=== PATIENT | female | born 1955 | race Hispanic/Latino ===

== ENCOUNTER 2017-08-19 05:40 | Day surgery (SDC) | payer OTHER ==
[2017-08-19] MEDS ORDERED: SUBLIMAZE IV NR (06:00)
[2017-08-19] MEDS ORDERED: VERSED IV NR (06:00)
[2017-08-19] MEDS ORDERED: NACL 0.9% 1000 ML 1,000 ML IV SCH (06:00)
[2017-08-19] MEDS ORDERED: PEPCID PO NR (06:00)
[2017-08-19] MEDS ORDERED: NACL BACTERIOSTATIC INFILTRATI ONE (06:38)
[2017-08-19] MEDS ORDERED: ADRENALIN ONE (07:06)
[2017-08-19] MEDS ORDERED: XYLOCAINE 1% 20 mL ONE (07:11)
[2017-08-19] MEDS ORDERED: MARCAINE-EPI/PF 0.5%-1:200,000 INFILTRATI ONE (07:11)
[2017-08-19] MEDS ORDERED: ZEMURON IV ONE (07:23)
[2017-08-19] MEDS ORDERED: SUBLIMAZE ONE (07:23)
[2017-08-19] MEDS ORDERED: QUELICIN ONE (07:23)
[2017-08-19] MEDS ORDERED: XYLOCAINE MPF 2% ONE (07:23)
[2017-08-19] MEDS ORDERED: DIPRIVAN 10 MG/ML IV ONE (07:24)
[2017-08-19 07:33] LABS: Blood Urea Nitrogen 9 mg/dL (7-17); Calcium 8.8 mg/dL (8.4-10.2); Carbon Dioxide 26 mmol/L (22-30); Glucose 82 mg/dL (65-100)
[2017-08-19 07:34] LABS: Anion Gap 16 mmol/L; Chloride 103.2 mmol/L (98-107); Potassium 3.5 mmol/L (3.6-5.0); Sodium 142 mmol/L (137-145)
[2017-08-19] MEDS ORDERED: DILAUDID IV PRN (07:54)
--- NOTE | 2017-08-19 07:54 | Anesthesia Day of Surgery ---
Anesthesia Day of Surgery - Day of Surgery Patient Examined: Yes Patient H&P Reviewed: Yes Patient is NPO: Yes Beta Blockers: No (NOT TAKING ONE) Cardiac Clearance: Yes
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
[2017-08-19] MEDS ORDERED: ePHEDrine SULFATE ONE (07:59)
[2017-08-19] MEDS ORDERED: ANCEF/STERILE WATER 2 GM/20 ML IV NR (08:00)
[2017-08-19] MEDS ORDERED: ADRENALIN IV ONE (08:03)
[2017-08-19] MEDS ORDERED: ZOFRAN IV PRN (09:00)
[2017-08-19] MEDS ORDERED: DECADRON ONE (09:10)
[2017-08-19] MEDS ORDERED: ZOFRAN ONE (09:11)
--- NOTE | 2017-08-19 09:19 | Short Stay Summary ---
Short Stay Documentation Date of service: 08/19/17 - History H&P: obtained from office - Allergies and Medications Current Medications: Allergies oxycodone Allergy (Verified 08/14/17 09:32) Itching Home Medications Medication Instructions Recorded Confirmed Last Taken Type ARIPiprazole [Abilify TAB] 2 mg PO DAILY 08/14/17 08/14/17 Unknown History Aspirin [Adult Low Dose Aspirin EC] 81 mg PO DAILY 08/14/17 08/14/17 Unknown History Bupropion HCl [buPROPion] 300 mg PO DAILY 08/14/17 08/14/17 Unknown History Cholecalciferol Vit D3 [Vitamin D3] 1,000 unit PO QDAY 08/14/17 08/14/17 Unknown History Cyanocobalamin (Vitamin B-12) 2,500 mcg PO DAILY 08/14/17 08/14/17 Unknown History [Vitamin B12] Losartan [Cozaar] 25 mg PO QDAY 08/14/17 08/14/17 Unknown History Omeprazole 40 mg PO DAILY 08/14/17 08/14/17 Unknown History Active Medications Cefazolin Sodium (Ancef/Sterile Water 2 Gm/20 Ml) 2 gm IV PREOP NR Stop: 08/19/17 23:59 Famotidine (Pepcid) 20 mg PO PREOP NR Stop: 08/19/17 23:59 Last Admin: 08/19/17 06:41 Dose: 20 mg Fentanyl (Sublimaze) 100 mcg IV ONCE NR Stop: 08/19/17 23:59 Last Admin: 08/19/17 07:15 Dose: 50 mcg Hydromorphone HCl (Dilaudid) 0.25 mg IV Q10MIN PRN PRN Reason: Pain, Moderate (4-6) Stop: 08/19/17 15:00 Sodium Chloride (Nacl 0.9% 1000 Ml) 1,000 mls @ 75 mls/hr IV DIRECT SALMA Last Admin: 08/19/17 06:50 Dose: 75 mls/hr Midazolam HCl (Versed) 2 mg IV PREOP NR Stop: 08/19/17 23:59 Last Admin: 08/19/17 07:15 Dose: 2 mg - Brief post op/procedure progress note Date of procedure: 08/19/17 Pre-op diagnosis: persistent left shoulder pain AC joint arthritis rotator cuff tear Post-op diagnosis: same Procedure: left shoulder arthroscopy subacromial decompression, distal clavicle excision, rotator cuff repair Anesthesia: GETA Findings: advanced acromioclavicular joint arthritic changes with inferior spurs causing significant impingement upon the rotator cuff, full thickness rotator cuff tear Surgeon: LANI RIVERS Hoop Cutter: PIEDAD LOMBARDO III Estimated blood loss: minimal Pathology: none Condition: stable - Hospital course Hospital course: no perioperative complications - Disposition Condition at discharge: Good Disposition: DC-01 TO HOME OR SELFCARE Short Stay Discharge Plan Follow up with: MALLORY SHAH MD [Primary Care Provider] - 7 Days
[2017-08-19 10:28] VITALS: BP 117/66
--- NOTE | 2017-08-19 10:37 | Post Anesthesia Evaluation ---
- Post Anesthesia Evaluation Patient Participated: Yes Airway Patent: Yes Stable Respiratory Function: Yes Nausea/Vomiting: No Temp > 96.8F: Yes Pain Manageable: Yes Adequeate Hydration: Yes Anesthesia Complications: No Block Receding Appropriately: Yes Patient on Ventilator: No
--- NOTE | 2017-08-20 13:41 | Operative Report ---
PREOPERATIVE DIAGNOSES: Persistent left shoulder pain, acromioclavicular joint arthritis, rotator cuff tear. POSTOPERATIVE DIAGNOSES: Persistent left shoulder pain, advanced acromioclavicular joint arthritic changes causing severe impingement upon the rotator cuff degenerative wear of the anterior and superior labrum, full thickness rotator cuff tear involving the supraspinatus tendon without retraction. OPERATIVE PROCEDURE: Left shoulder arthroscopy, subacromial decompression, distal clavicle excision, debridement of degenerative wear of the anterior and superior labrum, arthroscopic repair of a full thickness rotator cuff tear involving the supraspinatus tendon. SURGEON: Kodak Puri M.D. LEAD RIDER: Brandin Hernandez III, M.D. PREOPERATIVE ANTIBIOTICS: Ancef 2 grams IV within 1 hour of skin incision. ANESTHESIA: General plus interscalene block to the operative left upper extremity. DVT PROPHYLAXIS: Open toe thigh compression stockings and SCD pumps to bilateral lower extremities. OPERATIVE INSTRUMENTATION: Two metallic Opus rotator cuff anchors corresponding #2 Cobraided sutures. OPERATIVE COMPLICATIONS: None. OPERATIVE HISTORY AND PHYSICAL: This is a 62-year-old female who has had persistent progressive worsening left shoulder pain x 7 months' time. The pain markedly limits her day-to-day activities and has failed to improve despite extensive nonoperative treatment. The pain limits her day to day activity. MRI scan was performed and was positive for acromioclavicular joint arthritis, partial biceps tear, partial rotator cuff tear. The patient's MRI findings and diagnosis were discussed at length. After making sure the patient understood the diagnosis and all questions were answered, we then discussed treatment alternatives of surgical and nonsurgical including risks and benefits of both. After a long lengthy discussion, the patient opted to proceed with operative intervention. This will entail a left shoulder arthroscopy, subacromial decompression, distal clavicle excision, arthroscopic rotator cuff repair and surgery as indicated. The risks which were discussed to include, but not exclusive of infection, blood loss, nerve damage, loss of range of motion, persistent pain. Again, the patient understood, all her questions were answered, she wished to proceed with operative intervention. OPERATIVE PROCEDURE: The patient was seen in the preoperative holding area at which point informed consent was reviewed. Appropriate left upper extremity was identified and then marked. Anesthesia was then performed with interscalene block of the left upper extremity. After confirmation of adequate analgesia of the left upper extremity, the patient was then brought back to the operating room and placed supine on the standard operating room table. At which point, general anesthesia was administered and endotracheal tube was inserted. After confirmation of adequate general anesthesia, appropriate placement of endotracheal tube, we then made sure that all bony prominences were well padded. There were no wrinkles in the compression stockings on bilateral lower extremities and SCD pumps were applied to bilateral lower extremities. The patient was then sat in a beach chair position using the beach chair positioner, which was already in place. The head was secured in a nice neutral position. The well right arm was secured in neutral position at the patient's side with the aid of well arm calles. The lower extremities were checked making sure there were no wrinkles from the compression stockings and SCD pumps were applied to bilateral lower extremities. A pillow was placed in the posterior aspect of bilateral thighs, placed in slight flexion of the hips and knees making sure the popliteal fossa was free and clear. The head was secured in nice neutral position. The left arm was then examined under anesthesia. The patient was seen to have full range of motion. There was no evidence of instability. On examination under anesthesia, the left upper extremity was then prepped and draped in the usual sterile fashion. After prepping and draping, a time-out was called and appropriate left upper extremity was identified which again had been marked in the preoperative holding room area. We began our procedure by first making a standard posterior portal with #15 blade. Once the portal was established, the cannula with the blunt trocar was inserted into the intra-articular aspect of the glenohumeral joint. This went without difficulty or damage to articular cartilage. Once in place, the arthroscopic camera was immediately placed in the anterior aspect of the shoulder, established an anterior portal, by first inserting an 18 gauge spinal needle under direct arthroscopic visualization. Once confirmed to be in appropriate position, a 15 blade was then used to establish an anterior portal. Once the portal was established, a blunt trocar was inserted to widen the portal site and followed by an arthroscopic probe. We began a diagnostic arthroscopy in the anterior aspect of shoulder joint, with the patient had a normal subscapularis tendon. Inspection of the anterior superior labrum showed some mild degenerative wear which was gently debrided using 4.0 meniscal shaver. There was normal articular cartilage of the glenohumeral joint. There was a normal bare area without Hill-Sachs lesion. Inspection of the axillary recess showed to be no loose bodies present. Inspection of the bicep tendon showed to be some mild fraying at the origin, although otherwise intact. Next, the shoulder was in its normal relation. Inspection of rotator cuff showed to be full thickness tearing of the supraspinatus tendon without retraction. The arthroscopic pump was turned off making sure there was good hemostasis. Once this was performed, extraneous fluid was suctioned from the glenohumeral joint using arthroscopic cannula. Following this, all arthroscopic instrumentation was removed and then placed in subacromial space. Once in the subacromial space, we saw there was severe extensive subacromial bursitis. A third incision was made in the lateral aspect of the shoulder in line with the distal clavicle away from axillary nerve. We then debrided the extensive subacromial bursitis using 4.0 meniscal shaver. Hemostasis was achieved with the Arthrocare ablation wand. Following this, the arm was placed through range of motion. We saw there was severe impingement of the rotator cuff on undersurface of the acromion and distal clavicle. The soft tissue was removed from the undersurface of acromion using the Arthrocare ablation wand and then using a 4.0 hooded barrel bur. We carried out a subacromial decompression in standard fashion from inferior and superior, posterior and anterior making sure not to leave any residual anterior hook. Then, turned our attention to distal clavicle, which was also seen to be arthritic, performed a distal clavicle excision using the 4.0 hooded barrel bur to depth of approximately 6-8 mm. Once complete, we turned our attention to the rotator cuff tear. The atrophic edge, which was debrided using a series of meniscal basket punches and a 4.0 meniscal shaver. The soft tissue was removed from the rotator cuff footprint of the humeral head using 4.0 medical shaver as well as a series of rasps. Once this was completed, we passed #2 Cobraided suture in a horizontal mattress type fashion using the open suture passer and then tapped and inserted two metallic Opus rotator cuff anchors using these to anatomically repair the rotator cuff back down on the rotator cuff footprint. Once this was completed, the arthroscopic pump was turned off making sure there was good hemostasis, and once this was confirmed, the extraneous fluid was suctioned from the subacromial space using arthroscopic cannula. Following this, all endoscopic instrumentation was removed. The 3 portal sites were closed with 3-0 nylon in simple fashion, Adaptic, 4 x 4, ABD, paper tape. Small abduction sling was applied. The patient was sat down from the beach chair in supine position and was awakened from general anesthesia without complications and taken to the recovery room in stable condition and standard postoperative orders were written. JOB# [id number] MICHELLE/WILLIAM
== END 2017-08-19 11:01 | disposition home or self-care (01) ==
LOC: OR 05:40
PROVIDERS: ATTEND Orthopaedic Surgery
DX: S46.012A Strain of muscle(s) and tendon(s) of the rotator cuff of left shoulder, initial encounter (principal); S43.432A Superior glenoid labrum lesion of left shoulder, initial encounter; M75.52 Bursitis of left shoulder; F17.210 Nicotine dependence, cigarettes, uncomplicated; J44.9 Chronic obstructive pulmonary disease, unspecified; I10 Essential (primary) hypertension; I25.10 Atherosclerotic heart disease of native coronary artery without angina pectoris; I48.91 Unspecified atrial fibrillation; Z95.1 Presence of aortocoronary bypass graft; X58.XXXA Exposure to other specified factors, initial encounter; Z98.890 Other specified postprocedural states; K21.9 Gastro-esophageal reflux disease without esophagitis; Z79.899 Other long term (current) drug therapy; Z88.5 Allergy status to narcotic agent
CPT/HCPCS: 29823; 29826; 29827; 36415; 80048; C1713; J0171; J0330; J0690; J1100; J2250; J2405; J2704; J3010; J7030